=== PATIENT | male | born 1995 | race African-American/Black ===

== ENCOUNTER 2019-10-29 23:38 | Emergency (ER) | payer MEDICAID ==
[~2019-10-29] VITALS: Ht 180.3 cm; Wt 68.0 kg
[2019-10-29] MEDS ORDERED: NORCO 10-325 T1 EACH ORAL (23:46)
[2019-10-29 23:47] VITALS: BP 117/82
--- NOTE | 2019-10-29 23:47 | NUR ---
ED Nurse Note: Patient walked in to ER c/o chronic back pain. Stated that norcos are effective for him. No stated other medical history. Afebrile. No SOB. VSS.
--- NOTE | 2019-10-30 00:20 | NUR ---
ED Nurse Note: ERMD at bedside.
[2019-10-30 00:42] VITALS: BP 117/82
--- NOTE | 2019-10-30 00:42 | NUR ---
ED Nurse Note: Pt cleared by ERMD for discharge. Pt left without signing the D/C papers. All medical deviecs such as ID band removed. Pt is AAO x4, ambulatory and left with all personal belongings. Accompanied by family member.
[2019-10-30] MEDS ORDERED: HYDROcodone/Acetamin 10/325 tab ORAL ONE (00:45)
--- NOTE | 2019-10-30 03:16 | Emergency Room Report ---
History of Present Illness General Chief Complaint: Back Pain-No Injury Source: Patient Present Illness HPI Patient presents requesting [place] for his low back pain Reports that he has chronic low back pain And has been receiving [place] however as he ran out Reports that he was told by his physician to present to the emergency room Denies any radiation of pain denies any loss of control of bowel or urination Patient cannot give clear diagnosis or the etiology of his low back pathology Leading to pain management Denies any fevers or chills denies any acute trauma Allergies: Coded Allergies: No Known Allergies (Unverified , 10/29/19) Patient History Past Medical History: see triage record Reviewed Nursing Documentation: PMH: Agreed; PSxH: Agreed Nursing Documentation-PM Past Medical History: No History, Except For Review of Systems All Other Systems: negative except mentioned in HPI Physical Exam Vital Signs Date Time Temp Pulse Resp B/P (MAP) Pulse Ox O2 Delivery O2 Flow Rate FiO2 10/29/19 23:43 97.5 81 19 117/82 (94) 100 Room Air Sp02 EP Interpretation: reviewed, normal General Appearance: well appearing, no apparent distress Head: normocephalic, atraumatic Eyes: bilateral eye PERRL, bilateral eye EOMI ENT: EOM grossly intact Neck: supple Respiratory: lungs clear, no respiratory distress, no retraction Gastrointestinal: soft Musculoskeletal: other - Reports discomfort to the paraspinal area L3-L4 region no midline step-off Neurologic: alert, other - Ambulating without any discomfort Skin: no rash Lymphatic: no adenopathy Medical Decision Making Diagnostic Impression: Primary Impression: Back pain ER Course Given the history and presentation multiple differentials are in consideration including but not limited to neurological, neurosurgical, musculoskeletal, infectious pathology On review of CURES patient does receive regular medication on a monthly basis, there appears to be different providers Patient at this time is provided with an oral pill here Otherwise given the appearance of consistent outpatient follow-up patient is encouraged to contact pain management physician tomorrow Patient did come out of his room to discuss his need for a prescription Patient reports that he feels I am being' sarcastic' I did discuss with him that there is no attempt of sarcasm He has received medication from different providers over the last several months and at this time is inappropriate for emergency room prescription And request to follow closely by pain management physician Last Vital Signs Date Time Temp Pulse Resp B/P (MAP) Pulse Ox O2 Delivery O2 Flow Rate FiO2 10/30/19 00:42 97.5 78 19 117/82 100 Room Air Status: improved Disposition: HOME, SELF-CARE Condition: Improved Referrals: [facility] (PCP) Patient Instructions: Back Pain, Adult Additional Instructions: Please contact your pain management physician tomorrow. Review of your medication activity has shown prescriptions written by 3 different providers over the past 3 months. And you require close evaluation of your prescription by your pain management physician Madonna Roy DO Oct 30, 2019 03:16
== END 2019-10-30 00:42 | disposition home or self-care (01) ==
LOC: EMR 23:59
DX: M54.5 Low back pain (principal); Z79.891 Long term (current) use of opiate analgesic
CPT/HCPCS: 99282